=== PATIENT | female | born 1930 | race Caucasian/White ===

== ENCOUNTER 2017-05-17 17:22 | Inpatient (IN) | payer MEDICARE, OTHER ==
[~2017-05-17] VITALS: Ht 157.5 cm; Wt 54.2 kg
[2017-05-17] MEDS ORDERED: SODIUM CHLORIDE 0.9% 1,000 ML IV ONE (18:16)
[2017-05-17] MEDS ORDERED: ALBUTEROL/IPRATROPIUM 2.5MG/0.5MG, 3 ML NPPB ONE (18:30)
[2017-05-17] MEDS ORDERED: SODIUM CHLORIDE FLUSH 10ML SYR IVF ONE (18:30)
[2017-05-17] MEDS ORDERED: SODIUM CHLORIDE 0.9% 1,000ML IVBOLUS ONE (18:30)
[2017-05-17] MEDS ORDERED: ALBUTEROL/IPRATROPIUM 2.5MG/0.5MG, 3 ML ONE (18:42)
[2017-05-17 18:46] LABS: BASOPHILS # (AUTO) 0.03 x10^3/uL (0-0.1); BASOPHILS % (AUTO) 0 % (0-1); EOSINOPHILS # (AUTO) 0.01 x10^3/uL (0-0.4); EOSINOPHILS % (AUTO) 0 % (1-7); LYMPHOCYTES # (AUTO) 2.81 x10^3/uL (1-3.4); LYMPHOCYTES % (AUTO) 36 % (22-44); MD NO; MEAN CORPUSCULAR HGB CONC 33.3 g/dL (32.4-35.8); MEAN CORPUSCULAR VOLUME 90.2 fL (80-100); MEAN PLATELET VOLUME 8.3 fL (7.4-10.4); MONOCYTES # (AUTO) 0.79 x10^3/uL (0.2-0.8); MONOCYTES % (AUTO) 10 % (2-9); NEUTROPHILS # (AUTO) 4.29 x10^3/uL (1.8-6.8); NEUTROPHILS % (AUTO) 54 % (42-75); PLATELET COUNT 204 x10^3/uL (130-400); RED CELL DISTRIBUTION WIDTH 13.9 % (9.6-15.2)
[2017-05-17 18:59] LABS: ALANINE AMINOTRANSFERASE 31 U/L (12-78); ALBUMIN 2.3 g/dL (3.4-5.0); ANION GAP 4 mmol/L (5-15); CALCIUM 7.3 mg/dL (8.5-10.1); CHLORIDE 110 mmol/L (98-107); CREATININE 1.54 mg/dL (0.55-1.02)
[2017-05-17 19:03] LABS: ALKALINE PHOSPHATASE 38 U/L (45-117); BILIRUBIN,TOTAL 0.2 mg/dL (0.2-1.0); TOTAL PROTEIN 5.6 g/dL (6.4-8.2); TROPONIN I 0.047 ng/mL (0.000-0.045)
[2017-05-17 19:30] LABS: CULTURE INDICATED? YES; MICROSCOPIC INDICATED
[2017-05-17] MEDS ORDERED: PIPERACILLIN/TAZO/PMX 3.375GM 50 ML IV ONE (20:00)
[2017-05-17] MEDS ORDERED: PIPERACILLIN/TAZO/PMX 3.375GM 50 ML ONE (21:29)
[2017-05-17 21:55] VITALS: BP 115/53
[2017-05-18] MEDS ORDERED: LABETALOL 5MG/ML, 20ML IVPush PRN
[2017-05-18] MEDS ORDERED: POLYETHYLENE GLYCOL 17 GM PACKET PO PRN
[2017-05-18] MEDS ORDERED: BISACODYL 10 MG SUPP PR PRN
[2017-05-18] MEDS ORDERED: morphine SULFATE 10 MG/ML, 1ML IVPush PRN
[2017-05-18] MEDS ORDERED: FUROSEMIDE 20 MG/2 ML IV ONE
[2017-05-18] MEDS ORDERED: hydrALAzine 20 MG/ML, 1ML IVPush PRN
[2017-05-18] MEDS ORDERED: DOCUSATE 100 MG CAPSULE PO PRN
[2017-05-18] MEDS ORDERED: ONDANSETRON 2MG/ML, 2ML IVPush PRN
[2017-05-18] MEDS ORDERED: ACETAMINOPHEN 325 MG TABLET PO PRN
[2017-05-18 00:09] LABS: FREE T4 (FREE THYROXINE) 1.23 ng/dL (0.76-1.46); THYROID STIMULATING HORMONE 0.887 mIU/L (0.358-3.740)
[2017-05-18 00:10] LABS: HEMOGLOBIN A1C 6.6 % (4.2-6.3)
[2017-05-18] MEDS: CEFTRIAXONE 2 GM in DEXTROSE 5% 50 ML IVPB SCH (01:28)
[2017-05-18] MEDS: HEPARIN 5,000 UNITS/ML, 1ML SQ SCH ×3 (01:29→17:27)
[2017-05-18] MEDS: DOXYCYCLINE 100MG TABLET PO SCH ×3 (01:29→20:20)
[2017-05-18 02:14] VITALS: BP 153/64
[2017-05-18 03:32] LABS: BASOPHILS # (AUTO) 0.03 x10^3/uL (0-0.1); BASOPHILS % (AUTO) 0 % (0-1); EOSINOPHILS # (AUTO) 0.03 x10^3/uL (0-0.4); EOSINOPHILS % (AUTO) 1 % (1-7); LYMPHOCYTES # (AUTO) 2.72 x10^3/uL (1-3.4); LYMPHOCYTES % (AUTO) 40 % (22-44); MD NO; MEAN CORPUSCULAR HEMOGLOBIN 29.3 pg (27.0-34.8); MEAN CORPUSCULAR HGB CONC 32.6 g/dL (32.4-35.8); MEAN CORPUSCULAR VOLUME 89.8 fL (80-100); MEAN PLATELET VOLUME 8.1 fL (7.4-10.4); MONOCYTES # (AUTO) 0.63 x10^3/uL (0.2-0.8); MONOCYTES % (AUTO) 9 % (2-9); NEUTROPHILS # (AUTO) 3.49 x10^3/uL (1.8-6.8); NEUTROPHILS % (AUTO) 51 % (42-75); PLATELET COUNT 182 x10^3/uL (130-400); RED BLOOD COUNT 3.26 x10^6/uL (3.82-5.3); RED CELL DISTRIBUTION WIDTH 14.1 % (9.6-15.2)
[2017-05-18 03:40] LABS: ALANINE AMINOTRANSFERASE 26 U/L (12-78); ALBUMIN 2.1 g/dL (3.4-5.0); ANION GAP 3 mmol/L (5-15); CALCIUM 7.2 mg/dL (8.5-10.1); CHLORIDE 113 mmol/L (98-107); CREATININE 1.53 mg/dL (0.55-1.02)
[2017-05-18 03:45] LABS: ALKALINE PHOSPHATASE 33 U/L (45-117); BILIRUBIN,TOTAL 0.2 mg/dL (0.2-1.0); HDL CHOLESTEROL (DIRECT) 14 mg/dL (40-60); TOTAL PROTEIN 5.6 g/dL (6.4-8.2); TRIGLYCERIDES 108 mg/dL (50-200); TROPONIN I 0.042 ng/mL (0.000-0.045); VLDL CHOLESTEROL 22 mg/dL (0-25)
[2017-05-18 03:46] LABS: CHOL/HDL RATIO 3.6; CHOLESTEROL, TOTAL < 50 mg/dL (140-239); HDL CHOL % 0 % (28-40); LDL CHOLESTEROL,CALCULATED 14 mg/dL (54-169)
[2017-05-18] MEDS: INSULIN LISPRO 100 UNITS/ML, PEN SQ-INSULIN SCH ×5 (07:00→20:20)
[2017-05-18 07:43] VITALS: BP 103/58
[2017-05-18] MEDS ORDERED: FUROSEMIDE 20 MG/2 ML IV SCH (09:00)
[2017-05-18 09:23] LABS: TROPONIN I 0.044 ng/mL (0.000-0.045)
[2017-05-18] MEDS ORDERED: METO50TA4 PO (09:25)
[2017-05-18] MEDS ORDERED: PRAV10TA2 PO (09:25)
[2017-05-18] MEDS ORDERED: VIT1CAPS42 PO (09:25)
[2017-05-18] MEDS ORDERED: GLUC15006 PO (09:25)
[2017-05-18] MEDS ORDERED: METF500T4 PO (09:25)
[2017-05-18] MEDS ORDERED: VERA120T74 PO (09:25)
[2017-05-18] MEDS ORDERED: FENO160T PO (09:25)
[2017-05-18] MEDS ORDERED: LISI-170 PO (09:25)
[2017-05-18] MEDS ORDERED: CALC500T10 PO (09:25)
[2017-05-18] MEDS ORDERED: ASCO100T5 PO (09:25)
[2017-05-18] MEDS ORDERED: ASPI-515 PO (09:25)
[2017-05-18] MEDS ORDERED: MULT-257 PO (09:25)
[2017-05-18] MEDS ORDERED: OMEG1CAP6 PO (09:25)
[2017-05-18] MEDS ORDERED: CRAN500T2 PO (09:25)
[2017-05-18 12:40] VITALS: BP 128/67
[2017-05-18] MEDS: OMEGA-3/FISH OIL CAPSULE PO SCH ×2 (17:27→20:20)
[2017-05-18 19:22] VITALS: BP 149/70
[2017-05-18] MEDS: GUAIFENESIN/DM 200-20MG, 10ML UDC PO PRN (20:19)
[2017-05-18] MEDS: OXYcodone IR 5MG TABLET PO PRN (20:19)
[2017-05-18] MEDS: PRAVASTATIN 20 MG TABLET PO SCH (20:20)
[2017-05-18] MEDS: MULTIVITAMINS/MINERALS TABLET PO SCH (20:20)
[2017-05-18] MEDS: ASPIRIN 81 MG TABLET EC PO SCH (20:20)
[2017-05-19] MEDS: CEFTRIAXONE 2 GM in DEXTROSE 5% 50 ML IVPB SCH (01:55)
[2017-05-19] MEDS: HEPARIN 5,000 UNITS/ML, 1ML SQ SCH ×3 (01:55→17:49)
[2017-05-19 01:57] VITALS: BP 154/67
[2017-05-19 06:19] LABS: CALCIUM 7.9 mg/dL (8.5-10.1)
[2017-05-19 06:42] LABS: BASOPHILS # (AUTO) 0.02 x10^3/uL (0-0.1); BASOPHILS % (AUTO) 0 % (0-1); EOSINOPHILS # (AUTO) 0.04 x10^3/uL (0-0.4); EOSINOPHILS % (AUTO) 1 % (1-7); LYMPHOCYTES # (AUTO) 2.09 x10^3/uL (1-3.4); LYMPHOCYTES % (AUTO) 30 % (22-44); MD NO; MEAN CORPUSCULAR HEMOGLOBIN 29.9 pg (27.0-34.8); MEAN CORPUSCULAR HGB CONC 33.3 g/dL (32.4-35.8); MEAN CORPUSCULAR VOLUME 89.7 fL (80-100); MEAN PLATELET VOLUME 8.5 fL (7.4-10.4); MONOCYTES # (AUTO) 0.57 x10^3/uL (0.2-0.8); MONOCYTES % (AUTO) 8 % (2-9); NEUTROPHILS # (AUTO) 4.18 x10^3/uL (1.8-6.8); NEUTROPHILS % (AUTO) 61 % (42-75); PLATELET COUNT 231 x10^3/uL (130-400); RED BLOOD COUNT 3.05 x10^6/uL (3.82-5.3); RED CELL DISTRIBUTION WIDTH 14.4 % (9.6-15.2)
[2017-05-19 07:00] LABS: ALANINE AMINOTRANSFERASE 24 U/L (12-78); ALBUMIN 2.1 g/dL (3.4-5.0); ANION GAP 8 mmol/L (5-15); CHLORIDE 110 mmol/L (98-107); CREATININE 1.25 mg/dL (0.55-1.02)
[2017-05-19] MEDS: INSULIN LISPRO 100 UNITS/ML, PEN SQ-INSULIN SCH ×4 (07:00→20:41)
[2017-05-19 07:02] LABS: ALKALINE PHOSPHATASE 36 U/L (45-117); BILIRUBIN,TOTAL 0.2 mg/dL (0.2-1.0); TOTAL PROTEIN 5.6 g/dL (6.4-8.2)
[2017-05-19 07:05] VITALS: BP 105/60
[2017-05-19] MEDS: MULTIVITAMINS/MINERALS TABLET PO SCH (07:56)
[2017-05-19] MEDS: FENOFIBRATE 145 MG TABLET PO SCH (07:56)
[2017-05-19] MEDS: OMEGA-3/FISH OIL CAPSULE PO SCH ×3 (07:57→20:40)
[2017-05-19] MEDS: DOXYCYCLINE 100MG TABLET PO SCH ×2 (07:57→20:40)
[2017-05-19] MEDS: ASCORBIC ACID 500 MG TABLET PO SCH (07:57)
[2017-05-19] MEDS: ASPIRIN 81 MG TABLET EC PO SCH ×2 (07:57→20:40)
[2017-05-19] MEDS: METOPROLOL SUCCINATE 50 MG TAB.ER.24H PO SCH (07:58)
[2017-05-19] MEDS: MULTIVITAMIN 1 TABLET PO SCH (07:58)
[2017-05-19] MEDS: OXYcodone IR 5MG TABLET PO PRN (08:04)
[2017-05-19] MEDS: GUAIFENESIN/DM 200-20MG, 10ML UDC PO PRN (08:05)
[2017-05-19] MEDS ORDERED: CRANBERRY EXTRACT PO SCH (09:00)
[2017-05-19] MEDS ORDERED: GLUCOSAMINE HCL PO SCH (09:00)
[2017-05-19] MEDS ORDERED: morphine SULFATE 10 MG/ML, 1ML IVPush PRN (12:00)
[2017-05-19 13:00] VITALS: BP 100/56
[2017-05-19 16:20] VITALS: BP 122/68
[2017-05-19 20:23] VITALS: BP 106/51
[2017-05-19] MEDS: PRAVASTATIN 20 MG TABLET PO SCH (20:40)
[2017-05-20] VITALS (8 sets, daily range): BP systolic 100–133; BP diastolic 45–67
[2017-05-20] MEDS: HEPARIN 5,000 UNITS/ML, 1ML SQ SCH (01:45)
[2017-05-20] MEDS: CEFTRIAXONE 2 GM in DEXTROSE 5% 50 ML IVPB SCH (01:45)
[2017-05-20] MEDS: OXYcodone IR 5MG TABLET PO PRN ×3 (02:42→21:54)
[2017-05-20 05:21] LABS: BASOPHILS # (AUTO) 0.03 x10^3/uL (0-0.1); BASOPHILS % (AUTO) 0 % (0-1); EOSINOPHILS # (AUTO) 0.07 x10^3/uL (0-0.4); EOSINOPHILS % (AUTO) 1 % (1-7); LYMPHOCYTES # (AUTO) 2.31 x10^3/uL (1-3.4); LYMPHOCYTES % (AUTO) 30 % (22-44); MD NO; MEAN CORPUSCULAR HEMOGLOBIN 29.7 pg (27.0-34.8); MEAN CORPUSCULAR VOLUME 90.1 fL (80-100); MEAN PLATELET VOLUME 8.1 fL (7.4-10.4); MONOCYTES # (AUTO) 0.83 x10^3/uL (0.2-0.8); MONOCYTES % (AUTO) 11 % (2-9); NEUTROPHILS # (AUTO) 4.48 x10^3/uL (1.8-6.8); NEUTROPHILS % (AUTO) 58 % (42-75); PLATELET COUNT 253 x10^3/uL (130-400); RED BLOOD COUNT 2.61 x10^6/uL (3.82-5.3); RED CELL DISTRIBUTION WIDTH 14.5 % (9.6-15.2)
[2017-05-20 05:31] LABS: CHLORIDE 111 mmol/L (98-107)
[2017-05-20 05:39] LABS: ALANINE AMINOTRANSFERASE 24 U/L (12-78); ALBUMIN 2.1 g/dL (3.4-5.0); ALKALINE PHOSPHATASE 37 U/L (45-117); ANION GAP 6 mmol/L (5-15); BILIRUBIN,TOTAL 0.4 mg/dL (0.2-1.0); CREATININE 1.25 mg/dL (0.55-1.02); TOTAL PROTEIN 5.9 g/dL (6.4-8.2)
[2017-05-20] MEDS: INSULIN LISPRO 100 UNITS/ML, PEN SQ-INSULIN SCH ×4 (07:00→21:00)
[2017-05-20] MEDS: OMEGA-3/FISH OIL CAPSULE PO SCH ×3 (10:35→21:00)
[2017-05-20] MEDS: DOXYCYCLINE 100 MG in DEXTROSE 5% 250 ML IV SCH ×2 (10:35→21:53)
[2017-05-20] MEDS: FENOFIBRATE 145 MG TABLET PO SCH (10:36)
[2017-05-20] MEDS: METOPROLOL SUCCINATE 50 MG TAB.ER.24H PO SCH (10:36)
[2017-05-20] MEDS: MULTIVITAMIN 1 TABLET PO SCH (10:37)
[2017-05-20] MEDS: CALCIUM CARBONATE 500 MG TAB.CHEW PO SCH (10:37)
[2017-05-20] MEDS: ASPIRIN 81 MG TABLET EC PO SCH (10:37)
[2017-05-20] MEDS: ASCORBIC ACID 500 MG TABLET PO SCH (10:37)
[2017-05-20] MEDS: MULTIVITAMINS/MINERALS TABLET PO SCH (10:37)
[2017-05-20] MEDS: PRAVASTATIN 20 MG TABLET PO SCH (21:17)
[2017-05-20] MEDS: SODIUM CHLORIDE 0.45% 1,000 ML IV SCH (21:19)
[2017-05-21 01:15] VITALS: BP 126/64
[2017-05-21] MEDS: CEFTRIAXONE 2 GM in DEXTROSE 5% 50 ML IVPB SCH (01:30)
[2017-05-21 01:35] VITALS: BP 109/52
[2017-05-21 05:17] LABS: BASOPHILS # (AUTO) 0.03 x10^3/uL (0-0.1); BASOPHILS % (AUTO) 0 % (0-1); EOSINOPHILS # (AUTO) 0.17 x10^3/uL (0-0.4); EOSINOPHILS % (AUTO) 2 % (1-7); LYMPHOCYTES # (AUTO) 2.63 x10^3/uL (1-3.4); LYMPHOCYTES % (AUTO) 31 % (22-44); MD NO; MEAN CORPUSCULAR HEMOGLOBIN 30.1 pg (27.0-34.8); MEAN CORPUSCULAR VOLUME 88.4 fL (80-100); MEAN PLATELET VOLUME 8.8 fL (7.4-10.4); MONOCYTES # (AUTO) 0.91 x10^3/uL (0.2-0.8); MONOCYTES % (AUTO) 11 % (2-9); NEUTROPHILS # (AUTO) 4.69 x10^3/uL (1.8-6.8); NEUTROPHILS % (AUTO) 56 % (42-75); PLATELET COUNT 271 x10^3/uL (130-400); RED BLOOD COUNT 3.29 x10^6/uL (3.82-5.3); RED CELL DISTRIBUTION WIDTH 14.5 % (9.6-15.2)
[2017-05-21 05:20] LABS: ALANINE AMINOTRANSFERASE 26 U/L (12-78); ALBUMIN 2.2 g/dL (3.4-5.0); ANION GAP 8 mmol/L (5-15); CALCIUM 8.1 mg/dL (8.5-10.1); CHLORIDE 110 mmol/L (98-107); CREATININE 1.24 mg/dL (0.55-1.02)
[2017-05-21 05:22] LABS: ALKALINE PHOSPHATASE 45 U/L (45-117); BILIRUBIN,TOTAL 0.3 mg/dL (0.2-1.0); TOTAL PROTEIN 6.3 g/dL (6.4-8.2)
[2017-05-21 07:52] VITALS: BP 145/75
[2017-05-21] MEDS: MULTIVITAMIN 1 TABLET PO SCH (07:59)
[2017-05-21] MEDS: ASCORBIC ACID 500 MG TABLET PO SCH (07:59)
[2017-05-21] MEDS: OXYcodone IR 5MG TABLET PO PRN ×2 (07:59→17:18)
[2017-05-21] MEDS: FENOFIBRATE 145 MG TABLET PO SCH (07:59)
[2017-05-21] MEDS: MULTIVITAMINS/MINERALS TABLET PO SCH (07:59)
[2017-05-21] MEDS: METOPROLOL SUCCINATE 50 MG TAB.ER.24H PO SCH (07:59)
[2017-05-21] MEDS: INSULIN LISPRO 100 UNITS/ML, PEN SQ-INSULIN SCH ×4 (08:00→20:48)
[2017-05-21] MEDS: OMEGA-3/FISH OIL CAPSULE PO SCH (08:01)
[2017-05-21] MEDS: GUAIFENESIN/DM 200-20MG, 10ML UDC PO PRN ×2 (08:45→17:18)
[2017-05-21] MEDS: SODIUM CHLORIDE 0.45% 1,000 ML IV SCH (11:48)
[2017-05-21] MEDS: DOXYCYCLINE 100 MG in DEXTROSE 5% 250 ML IV SCH ×2 (11:48→23:54)
[2017-05-21 13:01] VITALS: BP 138/61
[2017-05-21 18:35] VITALS: BP 129/70
[2017-05-21] MEDS: PRAVASTATIN 20 MG TABLET PO SCH (20:48)
[2017-05-22 00:37] VITALS: BP 167/82
[2017-05-22] MEDS: CEFTRIAXONE 2 GM in DEXTROSE 5% 50 ML IVPB SCH (02:06)
[2017-05-22 04:59] LABS: BASOPHILS # (AUTO) 0.01 x10^3/uL (0-0.1); BASOPHILS % (AUTO) 0 % (0-1); EOSINOPHILS # (AUTO) 0.17 x10^3/uL (0-0.4); EOSINOPHILS % (AUTO) 2 % (1-7); LYMPHOCYTES # (AUTO) 1.68 x10^3/uL (1-3.4); LYMPHOCYTES % (AUTO) 20 % (22-44); MD NO; MEAN CORPUSCULAR HEMOGLOBIN 29.5 pg (27.0-34.8); MEAN CORPUSCULAR HGB CONC 33.7 g/dL (32.4-35.8); MEAN CORPUSCULAR VOLUME 87.6 fL (80-100); MEAN PLATELET VOLUME 8.2 fL (7.4-10.4); MONOCYTES # (AUTO) 1.09 x10^3/uL (0.2-0.8); MONOCYTES % (AUTO) 13 % (2-9); NEUTROPHILS # (AUTO) 5.47 x10^3/uL (1.8-6.8); NEUTROPHILS % (AUTO) 65 % (42-75); PLATELET COUNT 306 x10^3/uL (130-400); RED BLOOD COUNT 3.18 x10^6/uL (3.82-5.3); RED CELL DISTRIBUTION WIDTH 13.9 % (9.6-15.2)
[2017-05-22 05:15] LABS: CHLORIDE 107 mmol/L (98-107)
[2017-05-22 05:20] LABS: ANION GAP 7 mmol/L (5-15); CALCIUM 7.8 mg/dL (8.5-10.1)
[2017-05-22] MEDS: SODIUM CHLORIDE 0.45% 1,000 ML IV SCH (06:02)
[2017-05-22] MEDS: INSULIN LISPRO 100 UNITS/ML, PEN SQ-INSULIN SCH ×3 (07:00→12:52)
[2017-05-22] MEDS ORDERED: CEFD300C37 PO (07:27)
[2017-05-22] MEDS ORDERED: SENN1TAB7 PO (07:29)
[2017-05-22] MEDS ORDERED: FERR324T5 PO (07:29)
[2017-05-22 07:34] VITALS: BP 182/69
[2017-05-22] MEDS: MULTIVITAMIN 1 TABLET PO SCH (08:26)
[2017-05-22] MEDS: ASCORBIC ACID 500 MG TABLET PO SCH (08:26)
[2017-05-22] MEDS: CALCIUM CARBONATE 500 MG TAB.CHEW PO SCH (08:27)
[2017-05-22] MEDS: FENOFIBRATE 145 MG TABLET PO SCH (08:27)
[2017-05-22] MEDS: METOPROLOL SUCCINATE 50 MG TAB.ER.24H PO SCH (08:27)
[2017-05-22] MEDS: MULTIVITAMINS/MINERALS TABLET PO SCH (08:27)
[2017-05-22 08:37] VITALS: BP 169/73
[2017-05-22] MEDS: DOXYCYCLINE 100 MG in DEXTROSE 5% 250 ML IV SCH (12:30)
[2017-05-22 13:19] VITALS: BP 175/63
[2017-05-22] MEDS: GUAIFENESIN/DM 200-20MG, 10ML UDC PO PRN (17:11)
== END 2017-05-22 17:55 | disposition home health service (06) | DRG 871 ==
LOC: ED 20:32 → EDIP 21:16 → 4WST 21:45
PROVIDERS: ADMIT Internal Medicine; ATTEND Internal Medicine
PROC: 0T9B70Z Drainage of Bladder with Drainage Device, Via Natural or Artificial Opening (ICD-10-PCS; principal; 2017-05-17)
PROC: 30233N1 Transfusion of Nonautologous Red Blood Cells into Peripheral Vein, Percutaneous Approach (ICD-10-PCS; 2017-05-20)
DX: A41.9 Sepsis, unspecified organism (principal); J15.9 Unspecified bacterial pneumonia; J96.01 Acute respiratory failure with hypoxia; E43 Unspecified severe protein-calorie malnutrition; E11.22 Type 2 diabetes mellitus with diabetic chronic kidney disease; I13.0 Hypertensive heart and chronic kidney disease with heart failure and stage 1 through stage 4 chronic kidney disease, or unspecified chronic kidney disease; D62 Acute posthemorrhagic anemia; I50.30 Unspecified diastolic (congestive) heart failure; E86.0 Dehydration; N39.0 Urinary tract infection, site not specified; W18.30XA Fall on same level, unspecified, initial encounter; N18.9 Chronic kidney disease, unspecified; B96.20 Unspecified Escherichia coli [E. coli] as the cause of diseases classified elsewhere; N31.9 Neuromuscular dysfunction of bladder, unspecified; S30.1XXA Contusion of abdominal wall, initial encounter; I71.4 Abdominal aortic aneurysm, without rupture; Z68.21 Body mass index [BMI] 21.0-21.9, adult; Z90.49 Acquired absence of other specified parts of digestive tract; Z88.1 Allergy status to other antibiotic agents
CPT/HCPCS: 36415; 36430; 70450; 71045; 74018; 74176; 80048; 80053; 80061; 81001; 82728; 82962; 83036; 83540; 83550; 83605; 83735; 83880; 84145; 84439; 84443; 84466; 84484; 85014; 85018; 85025; 86850; 86900; 86923; 87040; 87070; 87077; 87086; 87186; 87205; 93005; 93306; 94640; 96361; 96374; J0696; J1644; J2543; J7060; J7620; J1815; J7030; P9016

== ENCOUNTER → 2017-12-06 | Outpatient (CLI) | payer MEDICARE, OTHER ==
[~2017-12-06] MED LIST: ASCO100T5 PO; ASPI-515 PO; CALC500T10 PO; CEFD300C37 PO; CRAN500T2 PO; FENO160T PO; FERR324T5 PO; GLUC15006 PO; LISI-170 PO; METF500T17 PO; METO50TA4 PO; MULT-257 PO; OMEG1CAP6 PO; PRAV10TA2 PO; SENN1TAB8 PO; VERA120T74 PO; VIT1CAPS42 PO
== END | disposition home or self-care (01) ==
LOC: CFH 10:46
PROVIDERS: ATTEND Nurse Practitioner Family
DX: S22.080A Wedge compression fracture of T11-T12 vertebra, initial encounter for closed fracture (principal); J47.9 Bronchiectasis, uncomplicated; J43.9 Emphysema, unspecified; X58.XXXA Exposure to other specified factors, initial encounter; Y93.89 Activity, other specified; Y92.89 Other specified places as the place of occurrence of the external cause; Y99.8 Other external cause status
CPT/HCPCS: 71250